=== PATIENT | male | born 1955 | race Caucasian/White ===

== ENCOUNTER → 2020-05-19 09:55 | Outpatient (CLI) | payer MEDICARE, SELFPAY ==
--- NOTE | 2020-05-19 10:12 | XR_ITS ---
PROCEDURE: XR LUMBAR SPINE 2-3V CLINICAL INDICATION: sciatica right COMPARISON: No exams were available for comparison FINDINGS: Alignment: Normal alignment. Bony structures: No fracture or dislocation. No lytic or blastic change. Disc spaces: There is mild multi level degenerative disc disease from T12-S1 with small endplate osteophytes. There is some decrease in the disc space at L4-5 and to a greater degree at L5-S1. Facet arthritic changes are present at L5-S1. Additional findings: IMPRESSION: Degenerative changes as described above Dictated by: Franklin White MD 05/19/2020 18:55 Franklin White MD in [place] 05/19/2020 18:55
--- NOTE | 2020-05-19 10:12 | XR_ITS ---
PROCEDURE: XR HIP RT 2-3V W/PELVIS CLINICAL INDICATION: pain COMPARISON: No exams were available for comparison FINDINGS: There are mild osteoarthritic changes of both hips as seen on the AP view of the pelvis. No fracture or dislocation. No lytic or blastic change. There is some generalized vascular calcification. IMPRESSION: Mild osteoarthritis Dictated by: Franklin White MD 05/19/2020 18:51 Franklin White MD in [place] 05/19/2020 18:51
== END ==
LOC: RAD 09:57
PROVIDERS: PCP Family Medicine; Visit Provider Family Medicine
DX: M25.551 Pain in right hip (principal); M53.86 Other specified dorsopathies, lumbar region
CPT/HCPCS: 72100; 73502

== ENCOUNTER → 2020-06-04 13:17 | Outpatient (CLI) | payer MEDICARE, SELFPAY ==
--- NOTE | 2020-06-04 13:25 | MR_ITS ---
PROCEDURE: MR LUMBAR SPINE WO CON CLINICAL INDICATION: DDD RT HIP YATES WITH NUMBNESS AND TINGLING DOWN RT LEG. X2-3MONTHS. PRIOR X-RAY 05-19-20 COMPARISON: CR XR LUMBAR SPINE 2-3V from 05/19/2020 TECHNIQUE: Standard multiplanar multiecho sequences are performed without contrast. 3-D MIP and myelographic images are also rendered and reviewed FINDINGS: Normal alignment. The spinal cord ends at the L1-L2 level. T11-T12: Mild degenerative disc disease. L1-L2, L2-L3 have an unremarkable appearance. L3-L4: Minimal bulging disc on the right the with mild facet hypertrophic change L4-5: Minimal bulging disc along with facet and ligament. There is moderate bilateral foraminal narrowing. L5-S1: Degenerative disc disease with bulging disc along with facet and ligamentum hypertrophy. There is moderate to severe bilateral foraminal narrowing which is slightly greater on the right with some impingement of the exiting L5 nerve root on both sides slightly greater on the right. No extruded herniated disc or canal stenosis evident. IMPRESSION: 1. L3-L4: Minimal bulging disc on the right the with mild facet hypertrophic change 2. L4-5: Minimal bulging disc along with facet and ligament. There is moderate bilateral foraminal narrowing. 3. L5-S1: Degenerative disc disease with bulging disc along with facet and ligamentum hypertrophy. There is moderate to severe bilateral foraminal narrowing which is slightly greater on the right with some impingement of the exiting L5 nerve root on both sides slightly greater on the right. 4. No extruded herniated disc or canal stenosis Dictated by: Franklin White MD 06/06/2020 09:45 Franklin White MD in [place] 06/06/2020 09:45
== END ==
PROVIDERS: PCP Family Medicine; Visit Provider Family Medicine
DX: M53.86 Other specified dorsopathies, lumbar region (principal)
CPT/HCPCS: 72148; 76376

== ENCOUNTER → 2020-06-18 08:23 | Outpatient (POV) | payer MEDICARE, SELFPAY ==
[2020-06-18 08:39] VITALS: BP 163/85; PULSE 64; RESP 18; O2SAT 98; BMI 34.2
--- NOTE | 2020-06-18 09:26 | HMH.PMCON ---
Assessment and Plan (1) Degenerative joint disease (DJD) of lumbar spine Status: Acute Category: Medical Code(s): M47.816 - Spondylosis without myelopathy or radiculopathy, lumbar region (2) Lumbar radiculopathy Status: Acute Category: Medical Code(s): M54.16 - Radiculopathy, lumbar region - Assessment and plan all Dx Assessment and Plan for all problems:: We will schedule the patient for a lumbar epidural steroid injection at L5-S1. The patient is on Plavix. He does understand that he will need to hold his anticoagulation therapy. We will seek approval from Dr. Renaldo Navarrete in [facility] for approval to hold the location. We will see him back in the clinic after his injection to reassess his symptoms. He has been instructed to contact clinic if he has any concerns before his next appointment. The patient and I specifically discussed risk factors for COVID19. These risks include, but are not limited to age greater than 60, heart or lung disease, diabetes, immunosuppression, and travel. We also discussed NSAIDs may worsen COVID19 infection or symptoms. Patient should not use NSAIDs to treat COVID19 signs or symptoms. Patient was also informed that any type of corticosteroid of any form (oral or injection) will decrease the patient's immune system response and may increase the likelihood of COVID19 infection and symptoms[address] Dr. Harvey has reviewed this note and agrees with this plan of care. This note was dictated using voice recognition software and make contain errors or omissions. HPI - Data of Consult Patient: new to practice Consult date: 06/18/20 Requesting Physician: Cammie Araiza APRN Primary Care Provider: Stef Oconnell MD - Consult Narrative Reason for consult: Low back pain with radiation into right hip and right leg History of present illness: Mr. Burgess is a 65 year old male presents today for consultation for low back pain with radiation into his right low back and right leg. Patient says he is having worsening pain with ambulation and with standing. He says after approximately 10 to 15 minutes the pain gets worse. He describes the pain as a stabbing sensation that is intermittent. He says the pain does radiate into the right foot. He also says that he feels as though there is extra padding noted to his shoe on the sole of his foot. This has been ongoing for 3 to 4 months. He does report stretching does help him along with repositioning. Patient does rate his pain a 7 out of 10 today. He has tried physical therapy for greater than 6 weeks. He has also tried ice and heat therapies and continues with a home stretching program. The patient is on Plavix therapy that is prescribed by Dr. Ge Navarrete in [facility]. CC: Cammie Araiza APRN [facility] History I have reviewed the patient's past medical history: Yes Medical History: Reports:: Congestive Heart Failure, Gastroesophageal Reflux Disease(GERD), Hyperlipidemia, Hypertension, Kidney Stones Denies:: Cancer, Diabetes Mellitus Type 1, Diabetes Mellitus Type 2, MRSA *Have you ever received a pneumonia vaccine?: Yes *Have you received a flu vaccine this season?: Yes Laterality Cases: Left: Other, Right: Arthroscopy Knee, Arthroscopy Shoulder Other Surgeries: Yes: Coronary Stent Amputation: No Fractures: No - *Social History Smoking Status: Never smoker Alcohol Intake: never Substance Use Type: denies use *Occupational Status:: other Housing: house Household Members: other *Travel in the last 8 weeks: None Family Hx:: Unable to obtain Review of Systems - Review of Systems Review of Systems General: No recent weight changes, no fever, no sleep disturbances Respiratory: No cough, no shortness of air, no recurring pulmonary infections Cardiovascular/peripheral vascular: No chest pain, no palpitations, no edema, no shortness of breath Gastrointestinal: No new onset incontinence, normal bowel movements reported Genitourina
== END ==
PROVIDERS: PCP Family Medicine; Visit Provider Clinical Nurse Specialist Family Health
DX: M47.896 Other spondylosis, lumbar region (principal); M54.16 Radiculopathy, lumbar region
CPT/HCPCS: 99202

== ENCOUNTER 2020-06-26 13:43 | Day surgery (SDC) | payer MEDICARE, SELFPAY ==
[2020-06-26 14:04] VITALS: BP 149/92; BP 189/94; PULSE 66; PULSE 70; RESP 18; TEMP 36.6; O2SAT 97; BMI 35.2
[2020-06-26 14:23] VITALS: BP 123/74; PULSE 89; RESP 18; O2SAT 98
--- NOTE | 2020-06-26 14:23 | HMH.PMPROC ---
- Procedure Date: 06/26/20 Time: 14:35 Anesthesiologist:: Selvin Harvey MD Complications:: None Pre-procedure Diagnosis:: Degenerative disc disease of lumbar spine with lumbar radiculopathy symptoms Post-procedure Diagnosis:: Same Indications for Procedure:: Patient is a pleasant 65-year-old white male who we are treating for low back pain with lumbar radicular symptoms. He does have increasing pain in his low back radiating down the right leg. He has no symptoms down his left leg. We will do a lumbar pleural steroid injection under fluoroscopy today to help him with his pain symptoms. He has been off of his Plavix for 1 week. Procedure Details:: Lumbar epidural steroid injection under fluoroscopy Informed consent was obtained and the risk and benefits of the procedure was explained to the patient. The patient was taken to the procedure room. The patient was placed prone on the procedure table. The patient was prepped and draped in sterile fashion. C-arm fluoroscopy was used to view the lumbar spine. Skin and subcutaneous tissues were anesthetized using lidocaine. I placed an 18-gauge epidural needle and advanced into the L4-L5 interspace using fluoroscopic guidance and [id number] to air. After confirmation of needle placement in the epidural space with dye I injected 2 mL of lidocaine 1.5% with Depo-Medrol 80 mg. Patient tolerated the procedure well with no complications. Plan and Disposition:: We will follow-up with him in 2 weeks. Will reevaluate symptoms at that time. And resume his Plavix tomorrow.
[2020-06-26 14:26] VITALS: BP 137/77; PULSE 85; RESP 18; O2SAT 99
== END 2020-06-26 14:30 | disposition home or self-care (01) ==
LOC: SC.PAINP 13:44
PROVIDERS: PCP Family Medicine; Visit Provider Anesthesiology
DX: M51.16 Intervertebral disc disorders with radiculopathy, lumbar region (principal); I11.0 Hypertensive heart disease with heart failure; I50.9 Heart failure, unspecified; K21.9 Gastro-esophageal reflux disease without esophagitis
CPT/HCPCS: 62323; J1040; Q9966

== ENCOUNTER → 2020-07-20 11:11 | Outpatient (POV) | payer MEDICARE, SELFPAY ==
[2020-07-20 11:20] VITALS: BP 168/92; PULSE 63; RESP 18; TEMP 36.8; O2SAT 98; BMI 34.4
--- NOTE | 2020-07-20 11:47 | P.CONS_ITS ---
[facility] Pain Management SOAP Note Subjective:: Patient is a pleasant 65-year-old white male treating for low back pain with lumbar radiculopathy. He is following up after lumbar epidural steroid injection. He got 100% relief of his symptoms. He is overall doing well and would like to follow-up on an as-needed basis. He rates his pain today 2 out of 10. ROS General: no recent weight change, no fever, no sleep disturbances Respiratory: no cough, no shortness of air, no recurring pulmonary infections Cardiovascular/Peripheral Vascular: No chest pain, No palpitations, no edema, no shortness of breath. Gastrointestinal: no new onset incontinence, normal bowel movements reported Genitourinary: no new onset incontinence Musculoskeletal: Back pain intermittently Psychiatric: normal mood/ affect Neurological: [denies new onset weakness in extremities], [denies new onset balance issues] Objective:: Physical Exam General: Alert and oriented x3, no acute distress, pleasant and cooperative, [on room air] Lungs: Resps E/U, Symmetrical chest expansion, Eyes: PERRL Musculoskeletal: Flexion and extension of lumbar spine somewhat guarded secondary to pain, deep tendon reflexes normal, strength in upper and lower extremities [5/5], normal gait noted Neurological: speech clear, radio dispatcher equal, no gross sensory deficits Assessment:: Degenerative disc disease lumbar spine lumbar radiculopathy Plan:: We will see the patient back on an as-needed basis. He has been instructed to call us if his pain begins to return. Dr. Harvey has reviewed this note and agrees with this plan of care. This note was dictated using voice recognition software and may contain errors or omissions [facility] History I have reviewed the patient's past medical history: Yes Medical History: Reports:: Congestive Heart Failure, Coronary Artery Disease, Gastroesophageal Reflux Disease(GERD), Hyperlipidemia, Hypertension, Kidney Stones Denies:: Cancer, Diabetes Mellitus Type 1, Diabetes Mellitus Type 2, MRSA, Seizures *Have you ever received a pneumonia vaccine?: Yes *Have you received a flu vaccine this season?: Yes Other Medical History: Denies: Blood Transfusion Reaction Laterality Cases: Left: Other, Right: Arthroscopy Knee, Arthroscopy Shoulder Other Surgeries: Yes: Cardiac Catheterization, Coronary Stent Amputation: No Fractures: No - *Social History Smoking Status: Never smoker Alcohol Intake: never Substance Use Type: denies use *Occupational Status:: other Housing: house Household Members: spouse *Travel in the last 8 weeks: None Family Hx:: Unable to obtain
== END ==
PROVIDERS: PCP Family Medicine; Visit Provider Clinical Nurse Specialist Family Health
DX: M51.16 Intervertebral disc disorders with radiculopathy, lumbar region (principal)
CPT/HCPCS: 99212

== ENCOUNTER → 2020-11-19 13:48 | Outpatient (POV) | payer MEDICARE, SELFPAY ==
--- NOTE | 2020-11-19 14:16 | HMH.PAINSOAP ---
[facility] Pain Management SOAP Note Subjective:: Patient is a pleasant 65-year-old white male who we are treating for low back pain with lumbar radiculopathy. He had a lumbar epidural steroid injection June of last year and did extremely well with that his pain is starting to return as of last week. He rates it an 8 out of 10. Had 80% relief from his lumbar epidural steroid injection for over 3 months. He would like to repeat this. He is on Plavix. He has had permission in the past to come off of this. ROS General: no recent weight change, no fever, no sleep disturbances Respiratory: no cough, no shortness of air, no recurring pulmonary infections Cardiovascular/Peripheral Vascular: No chest pain, No palpitations, no edema, no shortness of breath. Gastrointestinal: no new onset incontinence, normal bowel movements reported Genitourinary: no new onset incontinence Musculoskeletal: Back pain, leg pain Psychiatric: normal mood/ affect Neurological: [denies new onset weakness in extremities], [denies new onset balance issues] Objective:: Physical Exam General: Alert and oriented x3, no acute distress, pleasant and cooperative, [on room air] Lungs: Resps E/U, Symmetrical chest expansion, Eyes: PERRL Musculoskeletal: Flexion and extension of lumbar spine somewhat guarded secondary to pain, deep tendon reflexes normal, strength in upper and lower extremities [5/5], [abnormal gait noted] Neurological: speech clear, beach attendant equal, no gross sensory deficits Assessment:: Degenerative disc disease lumbar spine lumbar radiculopathy Plan:: We will schedule L4-L5 lumbar epidural steroid injection for the patient given the efficacy of this in the past I do believe it would benefit him. Patient's been instructed to call the office if he has any issues prior to his next appointment. Dr. Harvey has reviewed this note and agrees with this plan of care. This note was dictated using voice recognition software and may contain errors or omissions [facility] History I have reviewed the patient's past medical history: Yes Medical History: Reports:: Congestive Heart Failure, Coronary Artery Disease, Gastroesophageal Reflux Disease(GERD), Hyperlipidemia, Hypertension, Kidney Stones Denies:: Cancer, Diabetes Mellitus Type 1, Diabetes Mellitus Type 2, MRSA, Seizures *Have you ever received a pneumonia vaccine?: Yes *Have you received a flu vaccine this season?: Yes Other Medical History: Denies: Blood Transfusion Reaction Laterality Cases: Left: Other, Right: Arthroscopy Knee, Arthroscopy Shoulder Other Surgeries: Yes: Cardiac Catheterization, Coronary Stent Amputation: No Fractures: No - *Social History Smoking Status: Never smoker Alcohol Intake: never Substance Use Type: denies use *Occupational Status:: other Housing: house Household Members: spouse *Travel in the last 8 weeks: None Family Hx:: Unable to obtain
[2020-11-19 14:20] VITALS: BP 140/70; PULSE 68; RESP 18; O2SAT 98; BMI 35.9
== END ==
PROVIDERS: Visit Provider Clinical Nurse Specialist Family Health
DX: M51.16 Intervertebral disc disorders with radiculopathy, lumbar region (principal)
CPT/HCPCS: 99212; G0463

== ENCOUNTER 2020-12-04 10:42 | Day surgery (SDC) | payer MEDICARE, SELFPAY ==
[2020-12-04 10:45] VITALS: BP 171/89; PULSE 59; RESP 18; TEMP 36.3; O2SAT 98; BMI 34.4
[2020-12-04 11:19] VITALS: BP 142/78; PULSE 85; RESP 18; O2SAT 98
[2020-12-04 11:20] VITALS: BP 150/77; PULSE 85; RESP 18; O2SAT 98
--- NOTE | 2020-12-04 11:21 | HMH.PMPROC ---
- Procedure Date: 12/04/20 Time: 11:21 Anesthesiologist:: Selvin Harvey MD Complications:: None Pre-procedure Diagnosis:: Degenerative disc disease of lumbar spine with lumbar radiculopathy symptoms Post-procedure Diagnosis:: Same Indications for Procedure:: Patient is a pleasant 65-year-old white male who we are treating for low back pain with lumbar radiculopathy symptoms. He did well with a previous epidural steroid injection last June. His pain was 80% better for greater than 3 months. Pain is just now starting to return. We will do repeat lumbar epidural steroid injection under fluoroscopy today. Procedure Details:: Lumbar epidural steroid injection under fluoroscopy Informed consent was obtained and the risk and benefits of the procedure was explained to the patient. The patient was taken to the procedure room. The patient was placed prone on the procedure table. The patient was prepped and draped in sterile fashion. C-arm fluoroscopy was used to view the lumbar spine. Skin and subcutaneous tissues were anesthetized using lidocaine. I placed an 18-gauge epidural needle and advanced into the L4-L5 interspace using fluoroscopic guidance and [id number] to air. After confirmation of needle placement in the epidural space with dye I injected 2 mL of lidocaine 1.5% with Depo-Medrol 80 mg. Patient tolerated the procedure well with no complications. Plan and Disposition:: We will follow-up with him in 2 weeks. Will reevaluate symptoms at that time.
[2020-12-04 11:28] VITALS: BP 147/77; PULSE 58; RESP 20; O2SAT 98
== END 2020-12-04 11:29 | disposition home or self-care (01) ==
LOC: SC.PAINP 10:43
PROVIDERS: PCP Family Medicine; Visit Provider Anesthesiology
DX: M51.16 Intervertebral disc disorders with radiculopathy, lumbar region (principal); I25.10 Atherosclerotic heart disease of native coronary artery without angina pectoris; I11.0 Hypertensive heart disease with heart failure; I50.9 Heart failure, unspecified; E78.5 Hyperlipidemia, unspecified; I44.7 Left bundle-branch block, unspecified; Z88.0 Allergy status to penicillin; Z87.19 Personal history of other diseases of the digestive system
CPT/HCPCS: 62323; J1040; Q9966

== ENCOUNTER → 2021-08-04 18:41 | Outpatient (CLI) | payer MEDICARE, SELFPAY ==
[2021-08-04 19:12] LABS: Basophils # 0.1 K/mm3 (0-0.2); Basophils % 0.9 % (0.1-2.0); Eosinophils # 0.1 K/mm3 (0.0-0.4); Eosinophils % 1.6 % (0.1-12.0); Hematocrit 48.3 % (42.0-52.0); Lymphocytes # 2.2 K/mm3 (0.7-4.5); Lymphocytes % 30.9 % (10-50); Mean Corpuscular HGB Conc 33.1 g/dL (31.8-35.4); Mean Corpuscular Hemoglobin 30.7 pg (27.0-31.2); Mean Corpuscular Volume 92.7 fl (80-94); Monocytes # 0.5 K/mm3 (0.1-1.0); Monocytes % 6.9 % (1.7-9.3); Neutrophils # 4.2 K/mm3 (1.8-7.8); Neutrophils % 59.6 % (37.0-80.0); Platelet Count 273 K/mm3 (142-424); Red Blood Count 5.22 M/mm3 (4.60-6.20); Red Cell Distribution Width 13.1 % (11.5-17.5)
[2021-08-04 19:49] LABS: Alanine Aminotransferase 22 U/L (12-78); Albumin Level 4.4 g/dl (3.5-5.0); Albumin/Globulin Ratio 1.5 (1.1-1.8); Alkaline Phosphatase 92 U/L (38-126); Anion Gap 13.2 mEq/L (5-15); Aspartate Amino Transferase 28 U/L (17-59); Bilirubin,Total 0.4 mg/dl (0.2-1.3); Blood Urea Nitrogen 15 mg/dl (9-20); Calcium 9.3 mg/dl (8.4-10.2); Carbon Dioxide 28 mmol/L (22.0-30.0); Chloride 101 mmol/L (98-107); Chol/HDL Ratio 3.5 (1-3.5); Cholesterol 180 mg/dl (140-200); Estimated Glomerular Filt Rate 112 ml/min (>60); GFR (African American) 136 ML/MIN (>60); Glucose 85 mg/dl (74-100); HDL Cholesterol 51 mg/dl (40-60); Potassium 4.2 mmoL/L (3.5-5.1); Sodium 138 mmol/L (136-145); Total Protein,Serum 7.4 g/dl (6.3-8.2); Triglycerides 173 mg/dl (30-150); VLDL Cholesterol 35 mg/dL (0-40)
[2021-08-04 20:00] LABS: Direct LDL Cholesterol 88.65 mg/dL (100-129)
[2021-08-04 20:03] LABS: Free T4 (Free Thyroxine) 1.26 ng/dl (0.78-2.19)
[2021-08-04 20:18] LABS: Prostate Specific Ag Screen 0.9 ng/ml (0.0-4.0); Thyroid Stimulating Hormone 1.75 uIU/mL (0.465-4.68)
== END ==
PROVIDERS: Visit Provider Emergency Medicine
DX: I25.10 Atherosclerotic heart disease of native coronary artery without angina pectoris (principal); I10 Essential (primary) hypertension; Z12.5 Encounter for screening for malignant neoplasm of prostate
CPT/HCPCS: 80053; 80061; 84439; 84443; 85025; G0103

== ENCOUNTER → 2022-08-01 10:51 | Outpatient (CLI) | payer MEDICARE, SELFPAY ==
[2022-08-01 14:23] LABS: Basophils # 0.1 K/mm3 (0-0.2); Basophils % 1.3 % (0.1-2.0); Eosinophils # 0.1 K/mm3 (0.0-0.4); Eosinophils % 1.5 % (0.1-12.0); Hematocrit 49.5 % (42.0-52.0); Hemoglobin 16.2 g/dL (14.1-18.0); Lymphocytes # 2.8 K/mm3 (0.7-4.5); Lymphocytes % 32.8 % (10-50); Mean Corpuscular HGB Conc 32.7 g/dL (31.8-35.4); Mean Corpuscular Hemoglobin 29.5 pg (27.0-31.2); Mean Corpuscular Volume 90.3 fl (80-94); Mean Platelet Volume 8.5 fl (7.4-10.4); Monocytes # 0.5 K/mm3 (0.1-1.0); Monocytes % 6.1 % (1.7-9.3); Neutrophils # 4.9 K/mm3 (1.8-7.8); Neutrophils % 58.2 % (37.0-80.0); Platelet Count 297 K/mm3 (142-424); Red Blood Count 5.48 M/mm3 (4.60-6.20); White Blood Count 8.4 K/mm3 (4.8-10.8)
[2022-08-01 14:24] LABS: Chloride 103 mmol/L (98-107)
[2022-08-01 14:25] LABS: Potassium 3.9 mmoL/L (3.5-5.1); Sodium 136 mmol/L (136-145)
[2022-08-01 14:27] LABS: Alanine Aminotransferase 27 U/L (12-78); Albumin Level 4.4 g/dl (3.5-5.0); Albumin/Globulin Ratio 1.6 (1.1-1.8); Alkaline Phosphatase 109 U/L (38-126); Anion Gap 7.9 mEq/L (5-15); Aspartate Amino Transferase 31 U/L (17-59); Bilirubin,Total 0.4 mg/dl (0.2-1.3); Blood Urea Nitrogen 16 mg/dl (9-20); Calcium 9.1 mg/dl (8.4-10.2); Carbon Dioxide 29 mmol/L (22.0-30.0); Cholesterol 168 mg/dl (140-200); Estimated Glomerular Filt Rate 134 ml/min (>60); GFR (African American) 162 ML/MIN (>60); Globulin 2.7 g/dL (1.3-3.2); Glucose 97 mg/dl (74-100); Total Protein,Serum 7.1 g/dl (6.3-8.2); Triglycerides 162 mg/dl (30-150); VLDL Cholesterol 32 mg/dL (0-40)
[2022-08-01 14:28] LABS: Chol/HDL Ratio 3.9 (1-3.5); HDL Cholesterol 43 mg/dl (40-60)
[2022-08-01 14:38] LABS: Direct LDL Cholesterol 74.77 mg/dL (100-129)
== END ==
PROVIDERS: PCP Family Medicine; Visit Provider Family Medicine
DX: R53.83 Other fatigue (principal); I25.10 Atherosclerotic heart disease of native coronary artery without angina pectoris
CPT/HCPCS: 80053; 80061; 85025

== ENCOUNTER → 2023-02-08 07:58 | Outpatient (CLI) | payer MEDICARE, SELFPAY | PROVIDERS: PCP Family Medicine; Visit Provider Family Medicine | DX: M84.374A Stress fracture, right foot, initial encounter for fracture (principal) ==

== ENCOUNTER 2023-10-24 19:23 | Outpatient (CLI) | payer MEDICARE, SELFPAY ==
[2023-10-24 19:24] LABS: Alanine Aminotransferase 26 U/L (12-78); Albumin Level 3.9 g/dl (3.5-5.0); Albumin/Globulin Ratio 1.4 (1.1-1.8); Alkaline Phosphatase 104 U/L (38-126); Anion Gap 13.1 mEq/L (5-15); Aspartate Amino Transferase 36 U/L (17-59); Bilirubin,Total 0.8 mg/dl (0.2-1.3); Blood Urea Nitrogen 17 mg/dl (9-20); Calcium 8.6 mg/dl (8.4-10.2); Carbon Dioxide 26 mmol/L (22.0-30.0); Chloride 101 mmol/L (98-107); Chol/HDL Ratio 4.4 (1-3.5); Cholesterol 177 mg/dl (140-200); Estimated Glomerular Filt Rate 112 ml/min (>60); GFR (African American) 135 ML/MIN (>60); Globulin 2.8 g/dL (1.3-3.2); Glucose 84 mg/dl (74-100); HDL Cholesterol 40 mg/dl (40-60); Potassium 4.1 mmoL/L (3.5-5.1); Sodium 136 mmol/L (136-145); Total Protein,Serum 6.7 g/dl (6.3-8.2); Triglycerides 287 mg/dl (30-150); Uric Acid 7.7 mg/dl (3.5-8.5); VLDL Cholesterol 57 mg/dL (0-40)
[2023-10-24 19:35] LABS: Direct LDL Cholesterol 74.64 mg/dL (100-129)
== END 2023-10-24 23:59 ==
LOC: LAB.DROPOF 19:23
PROVIDERS: PCP Family Medicine; Visit Provider Family Medicine
DX: M25.542 Pain in joints of left hand (principal); E78.5 Hyperlipidemia, unspecified
CPT/HCPCS: 80053; 80061; 84550